=== PATIENT | male | born 1955 | race Caucasian/White ===

== ENCOUNTER → 2020-05-09 11:22 | Outpatient (BNVA) | payer MEDICARE, SELFPAY | PROVIDERS: Visit Provider Family Medicine | DX: Z13.6 Encounter for screening for cardiovascular disorders (principal); R35.1 Nocturia; K21.9 Gastro-esophageal reflux disease without esophagitis | CPT/HCPCS: 80053; 80061; 84153; 85025 ==

== ENCOUNTER 2020-07-24 12:00 | Outpatient (CLI) | payer MEDICARE, SELFPAY | END 2020-07-24 12:01 | disposition home or self-care (01) | LOC: SLEEP 07-25 12:36 | PROVIDERS: PCP Family Medicine; Visit Provider Family Medicine | DX: G47.10 Hypersomnia, unspecified (principal) | CPT/HCPCS: 87635; G0399 ==

== ENCOUNTER 2020-07-30 09:32 | Day surgery (SDC) | payer MEDICARE, SELFPAY ==
[2020-07-26 14:17] VITALS: BMI 28.8
--- NOTE | 2020-07-30 09:48 | ANES.PREANE2 ---
Pre-Anesthetic Assessment Pre-Anesthetic Assessment: Height/Weight: Height 1.75 m Weight 88.451 kg Proposed Procedure: Operation Date: 07/30/20 11:00 Proposed Procedures p EGD 80138 j31.2(Not Applicable) - Pepe Echevarria MD Was Beta Kyle taken within 24 hours: N/A Was Clonidine taken within 24 hours: N/A Social: Social History: No alcohol and No tobacco Exam: Pre-Anes Outpt Exam: alert, oriented x 3, clear to auscultation bilaterally and regular rate & rhythm Airway: Submandibular: WNL Cervical ROM: WNL MP: 2 Pulmonary: Pulmonary: None reported CV/HEM: CV/HEM: None reported : : None reported Hepatic: Hepatic: None reported GI: GI: GERD Comments: dysphagia Metabolic: Metabolic: None reported Musc/skel: Musc/skel: None reported Neuropsych: Neuropsych: None reported Anesthetic Plan: ASA status: 2 PFSH Anesthesia PFSH: Medical History No pertinent past medical history Surgical History History of colonoscopy 2017 Family History Father Cancer COLON Social History Smoking and tobacco status: current every day smoker smokeless tobacco Smokeless tobacco user: chewing tobacco Alcohol intake: current Alcohol intake frequency: few times a week Alcohol type: beer Data Anesthesia Cardiac Studies: No Data to Display
[2020-07-30 10:18] VITALS: BP 128/73; PULSE 56; RESP 18; TEMP 36.5
[2020-07-30] MEDS: sodium chloride 0.9% 1,000 ML 30 ML IV (10:25)
--- NOTE | 2020-07-30 11:34 | W.PM.OPSUD ---
Surgery/Procedure H&P Update DATE OF PROCEDURE: July 30, 2020 DATE H&P PERFORMED: 07/19/20 H&P UPDATE INFORMATION: I have reviewed H&P completed within last 30 days, I have examined patient prior to procedure and No changes to prior documentation PREOP DIAGNOSIS: upper gi symptoms PLANNED PROCEDURE: Operation Date: 07/30/20 11:00 Proposed Procedures p EGD 06004 j31.2(Not Applicable) - Pepe Echevarria MD
[2020-07-30 11:59] VITALS: BP 107/77; PULSE 74; RESP 16; TEMP 36.3; O2SAT 96
[2020-07-30 12:06] VITALS: BP 132/75; PULSE 62; RESP 16; TEMP 36.6; O2SAT 97
--- NOTE | 2020-07-30 13:53 | ANE.PACU2 ---
Inpatient post-anesthesia follow up: Airway intact: Yes Vital signs: Temperature 97.8 F Pulse Rate 62 Respiratory Rate 16 Blood Pressure 132/75 Pulse Oximetry 97 Oxygen Delivery Me thod Room Air Oxygen Flow Rate Fraction of Inspir ed Oxygen Hydration adequate: Yes Nausea and vomiting: No Pain level: 1 Mental status: Baseline
== END 2020-07-30 12:30 | disposition home or self-care (01) ==
PROVIDERS: PCP Family Medicine; Visit Provider Surgery
PROC: 0DJ08ZZ Inspection of Upper Intestinal Tract, Via Natural or Artificial Opening Endoscopic (ICD-10-PCS; CPT 43235; principal; 2020-07-30 11:00)
DX: J31.2 Chronic pharyngitis (principal); J39.2 Other diseases of pharynx; F17.220 Nicotine dependence, chewing tobacco, uncomplicated; K29.70 Gastritis, unspecified, without bleeding; K25.9 Gastric ulcer, unspecified as acute or chronic, without hemorrhage or perforation
CPT/HCPCS: 43239; 88305; 96360; 96361; J2704; J3490; J7030

== ENCOUNTER → 2021-08-12 13:26 | Outpatient (BNVA) | payer MEDICARE, SELFPAY | PROVIDERS: PCP Family Medicine; Visit Provider Family Medicine | DX: Z12.5 Encounter for screening for malignant neoplasm of prostate (principal); R53.83 Other fatigue | CPT/HCPCS: 80053; 84443; 85025; G0103 ==

== ENCOUNTER → 2021-09-19 13:26 | Outpatient (BNVA) | payer MEDICARE, SELFPAY | PROVIDERS: PCP Family Medicine; Visit Provider Family Medicine Adult Medicine | DX: Z13.6 Encounter for screening for cardiovascular disorders (principal); R73.9 Hyperglycemia, unspecified | CPT/HCPCS: 80061; 83036 ==

== ENCOUNTER → 2024-12-12 14:03 | Outpatient (BNVA) | payer MEDICARE, SELFPAY | PROVIDERS: PCP Family Medicine; Visit Provider Orthopaedic Surgery | DX: M51.362 Other intervertebral disc degeneration, lumbar region with discogenic back pain and lower extremity pain (principal); M47.896 Other spondylosis, lumbar region; G89.29 Other chronic pain | CPT/HCPCS: 72110; 99203 ==

== ENCOUNTER → 2025-01-23 13:52 | Outpatient (BNVA) | payer MEDICARE, SELFPAY | PROVIDERS: PCP Family Medicine; Visit Provider Orthopaedic Surgery | DX: M54.9 Dorsalgia, unspecified (principal) | CPT/HCPCS: 99213 ==